=== PATIENT | male | born 1960 | race Two or more races ===

== ENCOUNTER 2020-05-16 19:02 | Emergency (ER) | payer BC, OTHER ==
[~2020-05-16] VITALS: Ht 167.6 cm; Wt 84.8 kg
--- NOTE | 2020-05-16 19:22 | NUR ---
IV LINE ESTABLISHED. BLOOD DRAWN AND SENT TO LAB
--- NOTE | 2020-05-16 19:23 | NUR ---
[id number] from home had seizure episode x 3 the last 1 hour, last lasted 2 minutes. no oral trauma noted. blood sugar PATCH SETTER 233. pt awake but with confusion and disorientation at this time. seizure precaution provided. awaiting for MD santo
[2020-05-16] MEDS ORDERED: LEVETIRACETAM (500MG) 1,000 MG in IV NS 0.9% 100 ML IV SCH (19:30)
[2020-05-16 19:31] LABS: BASOPHILS # (AUTO) 0.1 /CMM (0.0-0.2); BASOPHILS % (AUTO) 0.7 % (0.0-2.0); EOSINOPHILS % (AUTO) 0.1 % (0.0-6.0); HEMATOCRIT 43 % (39-51); HEMOGLOBIN 14.7 g/dL (13.5-17.5); LYMPHOCYTES # (AUTO) 0.9 /CMM (0.8-4.8); LYMPHOCYTES % (AUTO) 11.3 % (20.0-44.0); MEAN CORPUSCULAR HGB CONC 35 g/dl (31.0-36.0); MEAN CORPUSCULAR VOLUME 91 fL (80-96); MONOCYTES # (AUTO) 0.2 /CMM (0.1-1.30); MONOCYTES % (AUTO) 3.2 % (2.0-12.0); NEUTROPHILS # (AUTO) 6.5 /CMM (1.8-8.9); NEUTROPHILS % (AUTO) 84.7 % (43.0-81.0); PLATELET COUNT (AUTO) 213 /CMM (150-450); RED BLOOD CELL COUNT(AUTO) 4.71 MIL/uL (4.5-6.0); WHITE BLOOD COUNT (AUTO) 7.7 K/uL (4.3-11.0)
[2020-05-16 19:47] LABS: ALANINE AMINOTRANSFERASE 20 U/L (12-78); ALBUMIN 4.1 g/dL (3.4-5.0); ALCOHOL, BLOOD < 3 mg/dL (0-0); ALKALINE PHOSPHATASE 86 U/L (46-116); ASPARTATE AMINOTRANSFERASE 18 U/L (15-37); BILIRUBIN,DIRECT 0.1 mg/dL (0.0-0.2); BILIRUBIN,TOTAL 0.4 mg/dL (0.2-1.0); CALCIUM, SERUM 8.3 mg/dL (8.5-10.1); CARBON DIOXIDE 28 mmol/L (21-32); CHLORIDE 91 mmol/L (98-107); CREATININE 0.7 mg/dL (0.6-1.3); GLUCOSE 161 mg/dL (74-106); POTASSIUM 3.3 mmol/L (3.5-5.1); SODIUM SERUM 127 mmol/L (136-145); TOTAL PROTEIN, SERUM 8.3 g/dL (6.4-8.2); UREA NITROGEN, BLOOD 9 mg/dL (7-18)
[2020-05-16 20:06] LABS: MAGNESIUM 1.9 mg/dL (1.8-2.4)
[2020-05-16] MEDS ORDERED: IV NS 0.9% 250 ML IV ONE (20:51)
[2020-05-16] MEDS ORDERED: IOHEXOL-350 100 ML VIAL IV ONE (20:51)
[2020-05-16] MEDS ORDERED: POTASSIUM CL. PREMIX PERIPHER. 50 ML ONE ×2 (21:40→23:06)
[2020-05-16] MEDS: POTASSIUM CL. PREMIX PERIPHER. 50 ML IV SCH ×2 (21:44→23:00)
[2020-05-17] MEDS: POTASSIUM CL. PREMIX PERIPHER. 50 ML IV SCH
[2020-05-17] MEDS ORDERED: POTASSIUM CL. PREMIX PERIPHER. 50 ML ONE (00:09)
--- NOTE | 2020-05-17 00:57 | NUR ---
Pt accepted to [facility] by Dr Falk. Room C-205, # for report [phone]. [facility] ETA [id number]
--- NOTE | 2020-05-17 02:17 | NUR ---
ambulance eta is 15 minutes
[2020-05-17 02:45] VITALS: BP 100/64
--- NOTE | 2020-05-17 02:45 | NUR ---
report given [facility]
--- NOTE | 2020-05-17 02:56 | NUR ---
transport in faciltiy, report given to group exercise manager, pt in stable condtion, not in acute distress, -sob. VSS. transfer ppw given. left at 0250
--- NOTE | 2020-05-17 02:59 | NUR ---
kermit son made aware
== END 2020-05-17 02:58 | disposition short-term general hospital (02) ==
LOC: ER 19:04
DX: G40.901 Epilepsy, unspecified, not intractable, with status epilepticus (principal); E87.6 Hypokalemia; Z20.828 Contact with and (suspected) exposure to other viral communicable diseases; R77.8 Other specified abnormalities of plasma proteins; E87.1 Hypo-osmolality and hyponatremia; R94.31 Abnormal electrocardiogram [ECG] [EKG]; E78.5 Hyperlipidemia, unspecified
CPT/HCPCS: 36415; 70450; 71045; 71275; 80048; 80076; 80307; 80320; 83735; 84484; 85025; 85730; 87426; 93005 ×2; 96365 ×2; 96366; 99291; C9803; J1953; J3480 ×3; J7030; J7040 ×2; J7050; Q9967; G0480

== ENCOUNTER 2021-08-01 03:34 | Emergency (ER) | payer BC ==
[~2021-08-01] VITALS: Ht 167.6 cm; Wt 82.1 kg
[~2021-08-01 03:34] MED LIST: CYCL10TA9 PO; DOCU100C36 PO; GABA-532 PO; HYDR-3972 PO; LOSA25TA27 PO; NIFE-34 PO; SIMV-46 PO
--- NOTE | 2021-08-01 03:41 | NUR ---
PT [id number]. X3 EPISODE OF SEIZURE SINCE 1300 TODAY. SEIZURE WAS WITNESSED BY BROTHER. PLACED IN BED 2 ON MONITOR AND PULSE OX. SEIZURE PRECAUTION INITIATED. AWAITING ORDERS.
[2021-08-01] MEDS ORDERED: LEVETIRACETAM (250 MG) 250 MG TABLET PO ONE ×3 (03:53→04:30)
[2021-08-01] MEDS ORDERED: LEVETIRACETAM (500MG) 1,000 MG in IV NS 0.9% 100 ML IV SCH (04:00)
--- NOTE | 2021-08-01 04:02 | NUR ---
blood drawn and sent to lab
[2021-08-01 04:33] LABS: BASOPHILS % (AUTO) 0.5 % (0.0-2.0); EOSINOPHILS % (AUTO) 0.6 % (0.0-6.0); HEMATOCRIT 41 % (39-51); HEMOGLOBIN 14.4 g/dL (13.5-17.5); LYMPHOCYTES # (AUTO) 1.1 K/uL (0.8-4.8); LYMPHOCYTES % (AUTO) 12.9 % (20.0-44.0); MEAN CORPUSCULAR HGB CONC 35 g/dl (31.0-36.0); MEAN CORPUSCULAR VOLUME 88 fL (80-96); MONOCYTES # (AUTO) 0.2 K/uL (0.1-1.30); MONOCYTES % (AUTO) 2.8 % (2.0-12.0); NEUTROPHILS % (AUTO) 83.2 % (43.0-81.0); PLATELET COUNT (AUTO) 238 K/uL (150-450); RED BLOOD CELL COUNT(AUTO) 4.69 MIL/uL (4.5-6.0); WHITE BLOOD COUNT (AUTO) 8.4 K/uL (4.3-11.0)
[2021-08-01 04:43] LABS: CREATININE 1.1 mg/dL (0.6-1.3); POTASSIUM 3.6 mmol/L (3.5-5.1)
--- NOTE | 2021-08-01 04:49 | NUR ---
ASKED PT TO PROVIDE URINE SAMPLE. WILL RECHECK.
[2021-08-01] MEDS ORDERED: LEVE500T9 PO (06:12)
--- NOTE | 2021-08-01 07:24 | NUR ---
REPORT GIVEN TO KAY CABRERA FOR NIRMALA
--- NOTE | 2021-08-01 08:57 | NUR ---
Patient discharged to home in stable condition. Written and verbal after care instructions given. Patient verbalizes understanding of instruction.IV removed. Catheter intact and site benign. Pressure and 4x4 applied to site. No bleeding noted.
[2021-08-01 08:58] VITALS: BP 135/61
== END 2021-08-01 08:58 | disposition home or self-care (01) ==
LOC: ER 03:35
DX: G40.909 Epilepsy, unspecified, not intractable, without status epilepticus (principal); Z91.14 Patient's other noncompliance with medication regimen; I10 Essential (primary) hypertension; E78.5 Hyperlipidemia, unspecified; E11.9 Type 2 diabetes mellitus without complications; Z79.899 Other long term (current) drug therapy
CPT/HCPCS: 36415; 71045; 80048; 80320; 85025; 99284; J1953; J7030; G0480

== ENCOUNTER 2024-10-20 09:48 | Emergency (ER) | payer BC ==
[~2024-10-20] VITALS: Ht 167.6 cm; Wt 80.7 kg
[2024-10-20 09:48] VITALS: TEMP 98.3
[~2024-10-20 09:48] MED LIST changes: +LEVE500T9 PO
[2024-10-20] MEDS: IV NS 0.9% 500 ML BAG IV ONE (10:17)
[2024-10-20 10:24] LABS: BASOPHILS % (AUTO) 0.3 % (0.0-2.0); EOSINOPHILS % (AUTO) 0.3 % (0.0-6.0); HEMATOCRIT 43 % (39-51); HEMOGLOBIN 14.6 g/dL (13.5-17.5); LYMPHOCYTES # (AUTO) 0.8 K/uL (0.8-4.8); LYMPHOCYTES % (AUTO) 11.2 % (20.0-44.0); MEAN CORPUSCULAR HEMOGLOBIN 31 PG (26.0-33.0); MEAN CORPUSCULAR HGB CONC 34 g/dl (31.0-36.0); MEAN CORPUSCULAR VOLUME 90 fL (80-96); MONOCYTES # (AUTO) 0.4 K/uL (0.1-1.30); MONOCYTES % (AUTO) 4.7 % (2.0-12.0); NEUTROPHILS # (AUTO) 6.2 K/uL (1.8-8.9); NEUTROPHILS % (AUTO) 83.5 % (43.0-81.0); PLATELET COUNT (AUTO) 201 K/uL (150-450); RED BLOOD CELL COUNT(AUTO) 4.77 MIL/uL (4.5-6.0); RED CELL DISTRIBUTION WIDTH 14.6 % (11.5-15.0); WHITE BLOOD COUNT (AUTO) 7.5 K/uL (4.3-11.0)
[2024-10-20] MEDS: LEVETIRACETAM (500MG) 1,000 MG in IV NS 0.9% 90 ML IV SCH (10:26)
[2024-10-20 10:29] LABS: CALCIUM, SERUM 8.8 mg/dL (8.5-10.1); CREATININE 0.8 mg/dL (0.6-1.3); POTASSIUM 3.5 mmol/L (3.5-5.1)
[2024-10-20] MEDS ORDERED: ACETAMINOPHEN ES 500 MG TABLET ONE (11:49)
[2024-10-20] MEDS: ACETAMINOPHEN ES 500 MG TABLET PO ONE (11:52)
[2024-10-20 15:12] VITALS: BP 135/82; O2SAT 99
== END 2024-10-20 15:36 ==
LOC: ER 09:50
DX: G40.909 Epilepsy, unspecified, not intractable, without status epilepticus (principal); E11.9 Type 2 diabetes mellitus without complications; E78.5 Hyperlipidemia, unspecified; I10 Essential (primary) hypertension; Z79.899 Other long term (current) drug therapy
CPT/HCPCS: 99285; 96365; 93005; 85025; 80048; 36415; J7030; J7040; A4223; J1953